=== PATIENT | male | born 1990 | race African-American/Black ===

== ENCOUNTER 2019-11-28 03:03 | Emergency (ER) | payer MEDICAID, OTHER ==
[~2019-11-28] VITALS: Ht 177.8 cm; Wt 72.6 kg
[2019-11-28] MEDS ORDERED: HYDR-3326 PO (03:17)
--- NOTE | 2019-11-28 03:25 | NUR ---
Dr Sheehan at bedside for MSE.
[2019-11-28] MEDS ORDERED: CEFTRIAXONE 1 G in IV DEXTROSE 5% 50 ML IV ONE (03:45)
[2019-11-28] MEDS ORDERED: HYDROMORPHONE 1 MG/1 ML DISP.SYRIN IV ONE (03:45)
[2019-11-28] MEDS ORDERED: ONDANSETRON 4 MG/2 ML VIAL IV ONE (03:45)
[2019-11-28] MEDS ORDERED: VANCOMYCIN IV 1,000 MG in IV DEXTROSE 5% 250 ML IV ONE (03:45)
[2019-11-28] MEDS ORDERED: VANCOMYCIN IV 200 ML ONE (03:51)
[2019-11-28] MEDS ORDERED: HYDROMORPHONE 1 MG/1 ML DISP.SYRIN ONE (03:51)
[2019-11-28] MEDS ORDERED: ONDANSETRON 4 MG/2 ML VIAL ONE (03:51)
[2019-11-28] MEDS ORDERED: CEFTRIAXONE /D5W 50ML IVPB **ER PYXIS IV ONE (03:51)
[2019-11-28] MEDS ORDERED: CEphaleXIN 500 MG CAPSULE PO ONE (04:15)
[2019-11-28] MEDS ORDERED: SULFAMETH/TRIMETH 800/160 MG TABLET PO ONE (04:15)
[2019-11-28] MEDS ORDERED: CEphaleXIN 500 MG CAPSULE ONE (04:15)
[2019-11-28] MEDS ORDERED: SULFAMETH/TRIMETH 800/160 MG TABLET ONE (04:16)
--- NOTE | 2019-11-28 04:17 | NUR ---
Patient refused all treatments in the middle of IV insertion. Dr Sheehan went at bedside to explain risks and benefits of going against medical advice. However, patient continues to state that he cannot continue with the IV insertion. Wasted Rocephin and Vancomycin bag prepared prior administration. Zofran 4mg and Dilaudid 1mg still intact and returned at the pharmacy bin. Unable to click return in the Pyxis for Dilaudid 1mg. Pt agreed to PO antibiotics, and was given discharge teaching still, to hand picker pain medications and PO antibiotics at home. Patient states he will come back later, when "my veins start to show". Before leaving, patient given information related to possible complications, up to and including , which could occur as a result of leaving the hospital at this time. Patient verbalizes understanding of risks involved due to leaving against medical advice. Patient has signed AMA form. Ambulated out of ER in steady gait.
[2019-11-28 04:21] VITALS: BP 120/80
== END 2019-11-28 04:24 | disposition left against medical advice (07) ==
LOC: ER 03:04
DX: L03.012 Cellulitis of left finger (principal); Z88.8 Allergy status to other drugs, medicaments and biological substances
CPT/HCPCS: A4663; J0696; J1170; J2405; J3370; J7030

== ENCOUNTER 2019-12-04 02:58 | Emergency (ER) | payer MEDICAID ==
[~2019-12-04] VITALS: Ht 177.8 cm; Wt 72.6 kg
[~2019-12-04 02:58] MED LIST: HYDR-3326 PO
[2019-12-04] MEDS ORDERED: [UNRECOGNIZED DRUG - REMARK] (03:06)
--- NOTE | 2019-12-04 03:20 | NUR ---
Patient walked into ER c/o left thumb swelling, redness and pain that started 8 days ago. Patient states swelling started after "working on my car."
[2019-12-04] MEDS ORDERED: HYDROMORPHONE 1 MG/1 ML DISP.SYRIN IV ONE (03:30)
[2019-12-04] MEDS ORDERED: CEFTRIAXONE 1 G in IV DEXTROSE 5% 50 ML IV ONE (03:30)
[2019-12-04] MEDS ORDERED: METRONIDAZOLE 500 MG/NS 100 ML PIGGYBACK IV ONE (03:30)
[2019-12-04] MEDS ORDERED: VANCOMYCIN IV 1,000 MG in IV DEXTROSE 5% 250 ML IV ONE (03:30)
[2019-12-04] MEDS ORDERED: ONDANSETRON 4 MG/2 ML VIAL IV ONE (03:30)
--- NOTE | 2019-12-04 03:50 | NUR ---
Patient unable to decided to have IV started. Stating "I want to leave and go to [place] instead."
--- NOTE | 2019-12-04 04:12 | NUR ---
Patient does not wish to proceed with medical care recommended by Dr. Katherine Sheehan ). Patient given information related to possible complications, up to and including , which could occur as a result of leaving the hospital at this time. Patient verbalizes understanding of risks involved due to leaving against medical advice. Patient has signed AMA form.
== END 2019-12-04 04:22 | disposition left against medical advice (07) ==
LOC: ER 03:04
DX: L02.512 Cutaneous abscess of left hand (principal); L03.114 Cellulitis of left upper limb; Z88.8 Allergy status to other drugs, medicaments and biological substances; Z91.19 Patient's noncompliance with other medical treatment and regimen
CPT/HCPCS: 73130; A4663

== ENCOUNTER 2020-07-23 22:31 | Emergency (ER) | payer MEDICAID ==
[~2020-07-23] VITALS: Ht 177.8 cm; Wt 72.6 kg
[~2020-07-23 22:31] MED LIST changes: +[UNRECOGNIZED DRUG - REMARK]
[2020-07-23] MEDS ORDERED: HYDR-3980 PO (22:58)
--- NOTE | 2020-07-23 23:27 | NUR ---
Patient discharged to home in stable condition. Written and verbal after care instructions given. Patient verbalizes understanding of instructions. Stressed follow up or return to ER for worsening s/s. Patient ambulating with steady gait. NAD noted
[2020-07-23 23:28] VITALS: BP 126/71
[2020-07-24] MEDS ORDERED: HYDR120S7 PO (00:41)
== END 2020-07-23 23:42 | disposition home or self-care (01) ==
LOC: ER 22:35
DX: S62.390A Other fracture of second metacarpal bone, right hand, initial encounter for closed fracture (principal); Y04.2XXA Assault by strike against or bumped into by another person, initial encounter; Y93.89 Activity, other specified; Y92.89 Other specified places as the place of occurrence of the external cause; Z91.048 Other nonmedicinal substance allergy status
CPT/HCPCS: 73130; A4663

== ENCOUNTER 2020-07-26 04:43 | Emergency (ER) | payer MEDICAID ==
[~2020-07-26] VITALS: Ht 177.8 cm; Wt 72.6 kg
[~2020-07-26 04:43] MED LIST changes: -HYDR-3326 PO; +HYDR120S7 PO
--- NOTE | 2020-07-26 05:10 | NUR ---
MD Hernandez in room to do MSE.
[2020-07-26 05:25] VITALS: BP 132/62
--- NOTE | 2020-07-26 05:25 | NUR ---
Patient discharged to home in stable condition. Written and verbal after care instructions given. Patient verbalizes understanding of instructions. Stressed follow up or return to ER for worsening s/s. Patient ambulates with steady gait, V/S stable, received paper Rx, left with all personal belongings.
== END 2020-07-26 05:25 | disposition home or self-care (01) ==
LOC: ER 04:46
DX: Z76.0 Encounter for issue of repeat prescription (principal)
CPT/HCPCS: A4663

== ENCOUNTER 2023-03-01 21:58 | Emergency (ER) | payer MEDICAID, OTHER ==
[~2023-03-01] VITALS: Ht 177.8 cm; Wt 71.7 kg
[2023-03-01] MEDS ORDERED: OLANZAPINE 5 MG TABLET PO ONE (23:45)
[2023-03-01 23:59] LABS: BASOPHILS # (AUTO) 0.1 K/UL (0.0-0.2); BASOPHILS % (AUTO) 1.1 % (0.0-2.0); EOSINOPHILS % (AUTO) 0.4 % (0.0-7.0); HEMATOCRIT 40.6 % (36.7-47.1); HEMOGLOBIN 13.6 g/dL (12.5-16.3); LYMPHOCYTES # (AUTO) 1.7 K/uL (0.8-4.8); LYMPHOCYTES % (AUTO) 19.7 % (20.5-51.5); MEAN CORPUSCULAR HEMOGLOBIN 30.2 uug (23.8-33.4); MEAN CORPUSCULAR HGB CONC 33 g/dL (32.5-36.3); MEAN CORPUSCULAR VOLUME 90.4 fL (73.0-96.2); MONOCYTES # (AUTO) 0.8 K/uL (0.1-1.30); MONOCYTES % (AUTO) 9.6 % (0.0-11.0); NEUTROPHILS % (AUTO) 69.2 % (38.5-71.5); PLATELET COUNT (AUTO) 410 K/uL (152-348); WHITE BLOOD COUNT (AUTO) 8.7 K/uL (3.6-10.2)
[2023-03-02] LABS: CALCIUM 9.4 mg/dL (8.5-10.1); CARBON DIOXIDE 29 mmol/L (21-32); CHLORIDE 102 mmol/L (98-107); GLUCOSE 84 mg/dL (74-106); POTASSIUM 3.7 mmol/L (3.5-5.1); SODIUM SERUM 140 mmol/L (136-145); UREA NITROGEN, BLOOD 15 mg/dL (7-18)
[2023-03-02] MEDS ORDERED: OLANZAPINE 5 MG TABLET ONE
[2023-03-02 00:03] LABS: DIFFERENTIAL COMMENT 1
[2023-03-02 00:05] LABS: ALANINE AMINOTRANSFERASE 28 U/L (16-63); ALBUMIN 3.8 g/dL (3.4-5.0); ALKALINE PHOSPHATASE 75 U/L (50-136); ASPARTATE AMINOTRANSFERASE 35 U/L (15-37); BILIRUBIN,DIRECT 0.2 mg/dL (0.0-0.2); BILIRUBIN,TOTAL 0.5 mg/dL (0.2-1.0); TOTAL PROTEIN, SERUM 7.2 g/dL (6.4-8.2)
[2023-03-02 00:13] LABS: ACETAMINOPHEN < 10.0 ug/mL (10-30)
[2023-03-02 00:21] LABS: ETHANOL < 3 MG/DL (0-10)
[2023-03-02 00:32] LABS: *BILIRUBIN,URIN NEGATIVE (NEGATIVE); *BLOOD, URINE NEGATIVE (NEGATIVE); *CLARITY,URINE CLEAR (CLEAR); *COLOR,URINE YELLOW (YELLOW); *KETONES,URINE NEGATIVE (NEGATIVE); *PROTEIN,URINE 2+ (NEGATIVE); *UROBILINOGEN,URINE 0.2 E.U./dl (NORMAL); LEUKOCYTE ESTERASE ,URINE TRACE (NEGATIVE); NITRITE, URINE NEGATIVE (NEGATIVE); UGLUCOSE NEGATIVE (NEGATIVE)
[2023-03-02 00:45] LABS: *AMPHETAMINE, URINE POSITIVE (NEGATIVE); *BARBITURATE, URINE NEGATIVE (NEGATIVE); *BENZODIAZEPINE, URINE NEGATIVE (NEGATIVE); *CANNABINOID, URINE POSITIVE (NEGATIVE); *COCCAINE, URINE NEGATIVE (NEGATIVE); *OPIATE, URINE NEGATIVE (NEGATIVE); *PHENCYCLIDINE SCREEN,URINE POSITIVE (NEGATIVE)
[2023-03-02 00:49] LABS: FENTANYL, URINE POSITIVE (NEGATIVE)
[2023-03-02 01:23] LABS: BACTERIA,URINE MODERATE /HPF (NONE SEEN); MUCUS,URINE MODERATE /LPF (0-FEW); SQUAMOUS EPITHELIAL CELL,UR MODERATE /HPF (NONE SEEN)
[2023-03-02 09:14] VITALS: O2SAT 98
== END 2023-03-02 09:51 ==
LOC: ER 21:58
DX: F29 Unspecified psychosis not due to a substance or known physiological condition (principal); Z88.8 Allergy status to other drugs, medicaments and biological substances; Z79.899 Other long term (current) drug therapy
CPT/HCPCS: 36415; 85025; A4606; A4663; G0480

== ENCOUNTER 2023-04-15 10:30 | Inpatient (IN) | payer OTHER ==
[~2023-04-15] VITALS: Ht 177.8 cm; Wt 70.3 kg
[2023-04-15] MEDS ORDERED: PROTONIX PO (10:50)
[2023-04-15] MEDS ORDERED: ZYPREXA (10:50)
[2023-04-15] MEDS ORDERED: QUET25TA3 (10:50)
[2023-04-15 11:56] LABS: BASOPHILS # (AUTO) 0.1 K/UL (0.0-0.2); BASOPHILS % (AUTO) 1.1 % (0.0-2.0); EOSINOPHILS # (AUTO) 0.3 K/uL (0.0-0.7); EOSINOPHILS % (AUTO) 2.7 % (0.0-7.0); HEMATOCRIT 35.6 % (36.7-47.1); HEMOGLOBIN 11.7 g/dL (12.5-16.3); LYMPHOCYTES # (AUTO) 1.4 K/uL (0.8-4.8); LYMPHOCYTES % (AUTO) 14.1 % (20.5-51.5); MEAN CORPUSCULAR HEMOGLOBIN 29.6 uug (23.8-33.4); MEAN CORPUSCULAR HGB CONC 33 g/dL (32.5-36.3); MEAN CORPUSCULAR VOLUME 90.2 fL (73.0-96.2); MONOCYTES # (AUTO) 0.5 K/uL (0.1-1.30); MONOCYTES % (AUTO) 5.5 % (0.0-11.0); NEUTROPHILS # (AUTO) 7.4 K/uL (1.8-8.9); NEUTROPHILS % (AUTO) 76.6 % (38.5-71.5); PLATELET COUNT (AUTO) 295 K/uL (152-348); RED BLOOD CELL COUNT(AUTO) 3.94 MIL/uL (4.06-5.63); RED CELL DISTRIBUTION WIDTH 13.8 % (12.1-16.2); WHITE BLOOD COUNT (AUTO) 9.7 K/uL (3.6-10.2)
[2023-04-15 12:07] LABS: CALCIUM 8.7 mg/dL (8.5-10.1); CARBON DIOXIDE 28 mmol/L (21-32); CHLORIDE 102 mmol/L (98-107); CREATININE 0.9 mg/dL (0.6-1.3); GLUCOSE 95 mg/dL (74-106); SODIUM SERUM 139 mmol/L (136-145); UREA NITROGEN, BLOOD 13 mg/dL (7-18)
[2023-04-15 12:16] LABS: ALANINE AMINOTRANSFERASE 63 U/L (16-63); ALBUMIN 2.9 g/dL (3.4-5.0); ALKALINE PHOSPHATASE 86 U/L (50-136); ASPARTATE AMINOTRANSFERASE 104 U/L (15-37); BILIRUBIN,DIRECT 0.1 mg/dL (0.0-0.2); BILIRUBIN,TOTAL 0.2 mg/dL (0.2-1.0); TOTAL PROTEIN, SERUM 7.5 g/dL (6.4-8.2)
[2023-04-15 12:22] LABS: DIFFERENTIAL COMMENT 1
[2023-04-15] MEDS ORDERED: PIPERACILLIN SODIUM/TAZOBACTAM 3.375 G in IV DEXTROSE 5% 50 ML IV ONE (12:30)
[2023-04-15] MEDS ORDERED: IV NORMAL SALINE 1000 ML BAG IV ONE (12:30)
[2023-04-15] MEDS ORDERED: VANCOMYCIN IV 1,000 MG in IV DEXTROSE 5% 250 ML IV ONE (12:30)
[2023-04-15] MEDS ORDERED: VANCOMYCIN IV 200 ML ONE (12:33)
[2023-04-15] MEDS ORDERED: PIPERACILLIN/TAZOBACTAM/D5W 50 ML IV ONE (12:33)
[2023-04-15] MEDS ORDERED: ACETAMINOPHEN 325 MG TABLET PO PRN (14:00)
[2023-04-15] MEDS ORDERED: ASPIRIN 325 MG TABLET PO SCH (14:00)
[2023-04-15] MEDS ORDERED: ONDANSETRON 4 MG/2 ML VIAL IV PRN (14:00)
[2023-04-15] MEDS ORDERED: MAGNESIUM HYDROXIDE 30 ML LIQUID UDC PO PRN (14:00)
[2023-04-15] MEDS ORDERED: HYDROCODONE/APAP 10-325 MG TABLET PO PRN (14:00)
[2023-04-15] MEDS ORDERED: REMEDY ESSENTIAL ZINC PASTE 113 GM TP PRN (14:00)
[2023-04-15 16:03] LABS: *BILIRUBIN,URIN NEGATIVE (NEGATIVE); *BLOOD, URINE NEGATIVE (NEGATIVE); *CLARITY,URINE CLEAR (CLEAR); *COLOR,URINE YELLOW (YELLOW); *KETONES,URINE NEGATIVE (NEGATIVE); *PROTEIN,URINE NEGATIVE (NEGATIVE); LEUKOCYTE ESTERASE ,URINE NEGATIVE (NEGATIVE); NITRITE, URINE NEGATIVE (NEGATIVE); UGLUCOSE NEGATIVE (NEGATIVE)
[2023-04-15 17:08] LABS: BACTERIA,URINE NONE SEEN /HPF (NONE SEEN); RBC,URINE NONE SEEN /HPF (0-3); SQUAMOUS EPITHELIAL CELL,UR FEW /HPF (NONE SEEN); WBC,URINE NONE SEEN /HPF (0-3)
[2023-04-15 18:36] VITALS: BP 98/57; TEMP 98.6; O2SAT 100
[2023-04-15 19:50] VITALS: BP 94/38; TEMP 98.4; O2SAT 97
[2023-04-15 20:41] LABS: *AMPHETAMINE, URINE NEGATIVE (NEGATIVE); *BARBITURATE, URINE NEGATIVE (NEGATIVE); *BENZODIAZEPINE, URINE NEGATIVE (NEGATIVE); *CANNABINOID, URINE POSITIVE (NEGATIVE); *COCCAINE, URINE NEGATIVE (NEGATIVE); *OPIATE, URINE NEGATIVE (NEGATIVE); *PHENCYCLIDINE SCREEN,URINE NEGATIVE (NEGATIVE); FENTANYL, URINE NEGATIVE (NEGATIVE)
[2023-04-15] MEDS: ENOXAPARIN SODIUM 40 MG/0.4 ML DISP.SYRIN SQ SCH (21:00)
[2023-04-15] MEDS: VANCOMYCIN IV 1,000 MG in IV DEXTROSE 5% 250 ML IV SCH (21:17)
[2023-04-16 00:05] VITALS: BP 92/49; TEMP 98.5; O2SAT 98
[2023-04-16 04:00] VITALS: BP 93/54; TEMP 98.5; O2SAT 95
[2023-04-16] MEDS: VANCOMYCIN IV 1,000 MG in IV DEXTROSE 5% 250 ML IV SCH (05:45)
[2023-04-16] MEDS ORDERED: DIVA500T4 PO (07:57)
[2023-04-16] MEDS ORDERED: DIVALPROEX 125 MG TABLET.DR PO SCH (09:00)
[2023-04-16] MEDS: DIVALPROEX ER 500 MG TAB.SR.24H PO SCH (09:12)
[2023-04-16] MEDS: QUETIAPINE FUMARATE 100 MG TABLET PO SCH ×2 (09:13→21:04)
[2023-04-16 09:14] VITALS: BP 90/57; O2SAT 96
[2023-04-16 12:05] VITALS: BP 94/54; TEMP 98.1; O2SAT 97
[2023-04-16] MEDS ORDERED: CLINDAMYCIN PHOSPHATE IV 900 MG in IV DEXTROSE 5% 50 ML IV SCH (16:00)
[2023-04-16 16:08] VITALS: BP 103/47; TEMP 98.5; O2SAT 97
[2023-04-16] MEDS: CLINDAMYCIN PHOSPHATE IV 900 MG in IV DEXTROSE 5% 50 ML IV SCH (17:56)
[2023-04-16 20:01] VITALS: BP 101/56; TEMP 97.9; O2SAT 97
[2023-04-16] MEDS: ENOXAPARIN SODIUM 40 MG/0.4 ML DISP.SYRIN SQ SCH (21:00)
[2023-04-17 00:02] VITALS: BP 91/55; TEMP 97.3; O2SAT 100
[2023-04-17] MEDS: CLINDAMYCIN PHOSPHATE IV 900 MG in IV DEXTROSE 5% 50 ML IV SCH ×2 (00:35→08:39)
[2023-04-17 04:05] VITALS: BP 104/54; TEMP 97.8; O2SAT 97
[2023-04-17 08:00] VITALS: BP 102/55; TEMP 98.8; O2SAT 95
[2023-04-17] MEDS: DIVALPROEX ER 500 MG TAB.SR.24H PO SCH (08:27)
[2023-04-17] MEDS: QUETIAPINE FUMARATE 100 MG TABLET PO SCH ×2 (08:27→20:21)
[2023-04-17] MEDS: ASPIRIN 81 MG TAB.CHEW PO SCH (08:27)
[2023-04-17 09:36] LABS: BASOPHILS # (AUTO) 0.1 K/UL (0.0-0.2); BASOPHILS % (AUTO) 1.2 % (0.0-2.0); EOSINOPHILS # (AUTO) 0.4 K/uL (0.0-0.7); EOSINOPHILS % (AUTO) 5.6 % (0.0-7.0); HEMATOCRIT 34.4 % (36.7-47.1); HEMOGLOBIN 11.2 g/dL (12.5-16.3); LYMPHOCYTES # (AUTO) 1.4 K/uL (0.8-4.8); LYMPHOCYTES % (AUTO) 20.9 % (20.5-51.5); MEAN CORPUSCULAR HEMOGLOBIN 29.1 uug (23.8-33.4); MEAN CORPUSCULAR HGB CONC 32 g/dL (32.5-36.3); MEAN CORPUSCULAR VOLUME 89.6 fL (73.0-96.2); MONOCYTES # (AUTO) 0.7 K/uL (0.1-1.30); MONOCYTES % (AUTO) 10.2 % (0.0-11.0); NEUTROPHILS % (AUTO) 62.1 % (38.5-71.5); PLATELET COUNT (AUTO) 346 K/uL (152-348); RED BLOOD CELL COUNT(AUTO) 3.84 MIL/uL (4.06-5.63); RED CELL DISTRIBUTION WIDTH 13.9 % (12.1-16.2); WHITE BLOOD COUNT (AUTO) 6.5 K/uL (3.6-10.2)
[2023-04-17 09:38] LABS: DIFFERENTIAL COMMENT 1
[2023-04-17 09:56] LABS: ALBUMIN 2.2 g/dL (3.4-5.0); BILIRUBIN,TOTAL 0.2 mg/dL (0.2-1.0); CALCIUM 8.6 mg/dL (8.5-10.1); CREATININE 0.9 mg/dL (0.6-1.3); POTASSIUM 4.2 mmol/L (3.5-5.1); TOTAL PROTEIN, SERUM 6.4 g/dL (6.4-8.2)
[2023-04-17 10:31] LABS: PHOSPHOROUS 4.3 mg/dL (2.5-4.9)
[2023-04-17 10:40] LABS: THYROID STIMULATING HORMONE 0.897 mIU/mL (0.358-3.740)
[2023-04-17 11:30] VITALS: BP 90/37; TEMP 99.2; O2SAT 95
[2023-04-17 16:00] VITALS: BP 90/48; TEMP 97.9; O2SAT 94
[2023-04-17] MEDS: NORMAL SALINE IV SCH ×2 (16:56→23:45)
[2023-04-17] MEDS: CLINDAMYCIN PHOSPHATE IV SCH ×2 (16:56→23:45)
[2023-04-17] MEDS: MUPIROCIN 2% OINT 22 GM TUBE TP SCH (16:56)
[2023-04-17 20:00] VITALS: BP 91/55; TEMP 97.5; O2SAT 96
[2023-04-17] MEDS: ENOXAPARIN SODIUM 40 MG/0.4 ML DISP.SYRIN SQ SCH (20:24)
[2023-04-18 04:00] VITALS: BP 93/54; TEMP 98.3; O2SAT 98
[2023-04-18 08:08] VITALS: BP 92/52; TEMP 98.4; O2SAT 97
[2023-04-18] MEDS: CLINDAMYCIN PHOSPHATE IV SCH ×2 (08:52→17:00)
[2023-04-18] MEDS: NORMAL SALINE IV SCH ×2 (08:52→17:00)
[2023-04-18] MEDS: ASPIRIN 81 MG TAB.CHEW PO SCH (09:05)
[2023-04-18] MEDS: QUETIAPINE FUMARATE 100 MG TABLET PO SCH (09:05)
[2023-04-18] MEDS: DIVALPROEX ER 500 MG TAB.SR.24H PO SCH (09:52)
[2023-04-18] MEDS ORDERED: ACIDOPHILUS/BULGARICUS CHEW TAB PO SCH (13:15)
[2023-04-18] MEDS ORDERED: ACID1TAB4 PO (13:21)
[2023-04-18] MEDS ORDERED: CLIN300C12 PO (13:21)
[2023-04-18] MEDS ORDERED: ASPI81TA31 PO (13:21)
[2023-04-18 16:00] VITALS: BP 95/48; TEMP 98; O2SAT 98
[2023-04-18] MEDS: MUPIROCIN 2% OINT 22 GM TUBE TP SCH (17:00)
[2023-04-18 20:00] VITALS: BP 105/55; TEMP 97.7; O2SAT 97
== END 2023-04-18 23:30 | disposition home or self-care (01) | DRG 720 ==
LOC: ER 10:30 → TELE3 17:53 → MEDSURG3 04-17 10:38 → MED 04-18 06:26
PROVIDERS: ADMIT Internal Medicine; ATTEND Internal Medicine
PROC: 0H9MXZZ Drainage of Right Foot Skin, External Approach (ICD-10-PCS; principal; 2023-04-16)
DX: A41.9 Sepsis, unspecified organism (principal); I21.A1 Myocardial infarction type 2; E43 Unspecified severe protein-calorie malnutrition; M62.82 Rhabdomyolysis; E88.09 Other disorders of plasma-protein metabolism, not elsewhere classified; S81.802A Unspecified open wound, left lower leg, initial encounter; L03.116 Cellulitis of left lower limb; E44.0 Moderate protein-calorie malnutrition; F31.9 Bipolar disorder, unspecified; F20.9 Schizophrenia, unspecified; S90.421A Blister (nonthermal), right great toe, initial encounter; X58.XXXA Exposure to other specified factors, initial encounter; Y93.9 Activity, unspecified; F15.11 Other stimulant abuse, in remission; F11.11 Opioid abuse, in remission; D64.9 Anemia, unspecified; S80.862A Insect bite (nonvenomous), left lower leg, initial encounter; W57.XXXA Bitten or stung by nonvenomous insect and other nonvenomous arthropods, initial encounter; Y92.039 Unspecified place in apartment as the place of occurrence of the external cause; Z91.199 Patient's noncompliance with other medical treatment and regimen due to unspecified reason
CPT/HCPCS: 36415; 71045; 73590; 73620; 83605; 83735; 84100; 84443; 84484; 85025; 85730; 87040; 93005; 93307; A4606; A4663; G0378; J1650; J2543; J3370; J3490; J7040; J7050

== ENCOUNTER 2023-04-23 02:50 | Emergency (ER) | payer OTHER ==
[~2023-04-23] VITALS: Ht 177.8 cm; Wt 70.3 kg
[~2023-04-23 02:50] MED LIST changes: +ACID1TAB4 PO; +ASPI81TA31 PO; +CLIN300C12 PO; +DIVA500T4 PO; -HYDR120S7 PO; +PROTONIX PO; +QUET25TA3; +ZYPREXA; -[UNRECOGNIZED DRUG - REMARK]
[2023-04-23] MEDS ORDERED: IV NORMAL SALINE 1000 ML BAG IV ONE (03:30)
[2023-04-23] MEDS ORDERED: VANCOMYCIN IV 1,000 MG in IV DEXTROSE 5% 250 ML IV ONE (03:30)
[2023-04-23] MEDS ORDERED: VANCOMYCIN IV 200 ML ONE (03:31)
[2023-04-23 03:58] LABS: BASOPHILS # (AUTO) 0.1 K/UL (0.0-0.2); EOSINOPHILS # (AUTO) 0.3 K/uL (0.0-0.7); EOSINOPHILS % (AUTO) 2.1 % (0.0-7.0); HEMATOCRIT 35.4 % (36.7-47.1); HEMOGLOBIN 11.7 g/dL (12.5-16.3); LYMPHOCYTES # (AUTO) 1.5 K/uL (0.8-4.8); LYMPHOCYTES % (AUTO) 12.6 % (20.5-51.5); MEAN CORPUSCULAR HEMOGLOBIN 29.3 uug (23.8-33.4); MEAN CORPUSCULAR HGB CONC 33 g/dL (32.5-36.3); MEAN CORPUSCULAR VOLUME 88.6 fL (73.0-96.2); MONOCYTES # (AUTO) 0.8 K/uL (0.1-1.30); MONOCYTES % (AUTO) 6.9 % (0.0-11.0); NEUTROPHILS # (AUTO) 9.5 K/uL (1.8-8.9); NEUTROPHILS % (AUTO) 77.4 % (38.5-71.5); PLATELET COUNT (AUTO) 623 K/uL (152-348); RED CELL DISTRIBUTION WIDTH 14.3 % (12.1-16.2); WHITE BLOOD COUNT (AUTO) 12.2 K/uL (3.6-10.2)
[2023-04-23 04:05] LABS: DIFFERENTIAL COMMENT 1
[2023-04-23 04:10] LABS: CARBON DIOXIDE 30 mmol/L (21-32); CHLORIDE 105 mmol/L (98-107); GLUCOSE 77 mg/dL (74-106); POTASSIUM 5.1 mmol/L (3.5-5.1); SODIUM SERUM 144 mmol/L (136-145); UREA NITROGEN, BLOOD 24 mg/dL (7-18)
[2023-04-23 04:20] LABS: ALANINE AMINOTRANSFERASE 62 U/L (16-63); ALBUMIN 3.3 g/dL (3.4-5.0); ALKALINE PHOSPHATASE 71 U/L (50-136); ASPARTATE AMINOTRANSFERASE 49 U/L (15-37); BILIRUBIN,TOTAL 0.4 mg/dL (0.2-1.0); NT-PRO BNP 79 pg/mL (0-125); TOTAL PROTEIN, SERUM 8.3 g/dL (6.4-8.2)
[2023-04-23 04:29] LABS: BILIRUBIN,DIRECT < 0.1 mg/dL (0.0-0.2)
[2023-04-23 06:14] LABS: *BILIRUBIN,URIN NEGATIVE (NEGATIVE); *BLOOD, URINE NEGATIVE (NEGATIVE); *CLARITY,URINE CLEAR (CLEAR); *COLOR,URINE YELLOW (YELLOW); *KETONES,URINE NEGATIVE (NEGATIVE); *PROTEIN,URINE NEGATIVE (NEGATIVE); *UROBILINOGEN,URINE 0.2 E.U./dl (NORMAL); LEUKOCYTE ESTERASE ,URINE NEGATIVE (NEGATIVE); NITRITE, URINE NEGATIVE (NEGATIVE); UGLUCOSE NEGATIVE (NEGATIVE)
[2023-04-23 06:25] LABS: *AMPHETAMINE, URINE POSITIVE (NEGATIVE); *BARBITURATE, URINE NEGATIVE (NEGATIVE); *BENZODIAZEPINE, URINE NEGATIVE (NEGATIVE); *CANNABINOID, URINE POSITIVE (NEGATIVE); *COCCAINE, URINE NEGATIVE (NEGATIVE); *OPIATE, URINE NEGATIVE (NEGATIVE); *PHENCYCLIDINE SCREEN,URINE NEGATIVE (NEGATIVE)
[2023-04-23 06:26] LABS: FENTANYL, URINE POSITIVE (NEGATIVE)
[2023-04-23 09:10] VITALS: O2SAT 100
== END 2023-04-23 09:20 | disposition short-term general hospital (02) ==
LOC: ER 02:57
DX: L03.115 Cellulitis of right lower limb (principal); F19.10 Other psychoactive substance abuse, uncomplicated; J40 Bronchitis, not specified as acute or chronic; K21.9 Gastro-esophageal reflux disease without esophagitis; F31.9 Bipolar disorder, unspecified; F20.9 Schizophrenia, unspecified; Z79.82 Long term (current) use of aspirin; Z79.899 Other long term (current) drug therapy; Z98.890 Other specified postprocedural states; Z20.822 Contact with and (suspected) exposure to COVID-19; Z88.1 Allergy status to other antibiotic agents
CPT/HCPCS: 99285; 93970; 96365; 71045; 96366; 87426; 80076; 80048; 82550; 83880; 85025; 87040 ×2; 84484; 36415; 93005; 83605; 80307; 81003; J3370; J7040 ×2; A4606; A4663

== ENCOUNTER 2023-05-03 14:35 | Emergency (ER) | payer OTHER ==
[~2023-05-03] VITALS: Ht 177.8 cm; Wt 77.1 kg
[2023-05-03 14:41] VITALS: O2SAT 97
[2023-05-03] MEDS ORDERED: OLANZAPINE ZYDIS 5 MG TAB.RAPDIS SL SCH (15:00)
[2023-05-03] MEDS ORDERED: MISCELLANEOUS MED PO ONE (15:00)
[2023-05-03] MEDS ORDERED: LORAZEPAM 0.5 MG TABLET PO ONE (15:00)
[2023-05-03] MEDS ORDERED: LORAZEPAM 1 MG TABLET ONE (15:10)
[2023-05-03] MEDS ORDERED: OLANZAPINE ZYDIS 5 MG TAB.RAPDIS SL ONE (15:15)
== END 2023-05-03 18:45 | disposition home or self-care (01) ==
LOC: ER 14:35
DX: F15.10 Other stimulant abuse, uncomplicated (principal); R20.2 Paresthesia of skin; J40 Bronchitis, not specified as acute or chronic; K21.9 Gastro-esophageal reflux disease without esophagitis; F31.9 Bipolar disorder, unspecified; F20.9 Schizophrenia, unspecified; F17.200 Nicotine dependence, unspecified, uncomplicated; Z98.890 Other specified postprocedural states; Z79.899 Other long term (current) drug therapy; Z60.2 Problems related to living alone
CPT/HCPCS: A4606; A4663

== ENCOUNTER 2023-05-14 16:31 | Emergency (ER) | payer OTHER ==
[~2023-05-14] VITALS: Ht 177.8 cm; Wt 77.1 kg
[2023-05-14 16:46] VITALS: O2SAT 97
[2023-05-14] MEDS ORDERED: MUPI15CR TP (17:14)
[2023-05-14] MEDS ORDERED: PERM60CR4 TP (17:14)
[2023-05-14] MEDS ORDERED: [UNRECOGNIZED DRUG - CODE] TP (17:17)
[2023-05-15] MEDS ORDERED: PERM60CR4 TP (15:58)
== END 2023-05-14 17:33 | disposition home or self-care (01) ==
LOC: ER 16:33
DX: F22 Delusional disorders (principal); L73.9 Follicular disorder, unspecified; R20.2 Paresthesia of skin; F19.10 Other psychoactive substance abuse, uncomplicated; J40 Bronchitis, not specified as acute or chronic; K21.9 Gastro-esophageal reflux disease without esophagitis; Z79.82 Long term (current) use of aspirin; Z98.890 Other specified postprocedural states; Z79.899 Other long term (current) drug therapy; Z59.00 Homelessness unspecified; Z88.1 Allergy status to other antibiotic agents
CPT/HCPCS: A4606; A4663

== ENCOUNTER 2023-05-15 15:39 | Emergency (ER) | payer OTHER ==
[~2023-05-15] VITALS: Ht 177.8 cm; Wt 77.1 kg
[~2023-05-15 15:39] MED LIST changes: +MUPI15CR TP; +PERM60CR4 TP; +[UNRECOGNIZED DRUG - CODE] TP
[2023-05-15 15:42] VITALS: O2SAT 98
[2023-05-15] MEDS ORDERED: PERM60CR4 TP (15:58)
== END 2023-05-15 16:21 | disposition home or self-care (01) ==
LOC: ER 15:47
DX: F45.8 Other somatoform disorders (principal); F15.10 Other stimulant abuse, uncomplicated; J40 Bronchitis, not specified as acute or chronic; K21.9 Gastro-esophageal reflux disease without esophagitis; F31.9 Bipolar disorder, unspecified; F20.9 Schizophrenia, unspecified; F17.200 Nicotine dependence, unspecified, uncomplicated; Z79.82 Long term (current) use of aspirin; Z98.890 Other specified postprocedural states; Z79.899 Other long term (current) drug therapy; Z88.2 Allergy status to sulfonamides
CPT/HCPCS: A4606; A4663

== ENCOUNTER 2023-07-23 22:16 | Emergency (ER) | payer OTHER ==
[~2023-07-23] VITALS: Ht 177.8 cm; Wt 79.4 kg
[~2023-07-23 22:16] MED LIST changes: +CEPH500C2 PO; +IBUP-1953 PO
[2023-07-24 00:15] LABS: BASOPHILS # (AUTO) 0.1 K/UL (0.0-0.2); EOSINOPHILS # (AUTO) 0.1 K/uL (0.0-0.7); EOSINOPHILS % (AUTO) 1.9 % (0.0-7.0); HEMOGLOBIN 13.9 g/dL (12.5-16.3); LYMPHOCYTES # (AUTO) 1.9 K/uL (0.8-4.8); LYMPHOCYTES % (AUTO) 26.3 % (20.5-51.5); MEAN CORPUSCULAR HGB CONC 33 g/dL (32.5-36.3); MEAN CORPUSCULAR VOLUME 87.4 fL (73.0-96.2); MONOCYTES # (AUTO) 0.6 K/uL (0.1-1.30); NEUTROPHILS # (AUTO) 4.6 K/uL (1.8-8.9); NEUTROPHILS % (AUTO) 62.8 % (38.5-71.5); PLATELET COUNT (AUTO) 362 K/uL (152-348); RED CELL DISTRIBUTION WIDTH 14.6 % (12.1-16.2); WHITE BLOOD COUNT (AUTO) 7.4 K/uL (3.6-10.2)
[2023-07-24 00:23] LABS: DIFFERENTIAL COMMENT 1
[2023-07-24 00:24] LABS: CREATININE 0.9 mg/dL (0.6-1.3); POTASSIUM 4.1 mmol/L (3.5-5.1)
[2023-07-24 00:30] LABS: *AMPHETAMINE, URINE POSITIVE (NEGATIVE); *BARBITURATE, URINE NEGATIVE (NEGATIVE); *BENZODIAZEPINE, URINE NEGATIVE (NEGATIVE); *CANNABINOID, URINE POSITIVE (NEGATIVE); *COCCAINE, URINE NEGATIVE (NEGATIVE); *OPIATE, URINE POSITIVE (NEGATIVE); *PHENCYCLIDINE SCREEN,URINE POSITIVE (NEGATIVE)
[2023-07-24 00:30] LABS: ALBUMIN 3.8 g/dL (3.4-5.0); BILIRUBIN,TOTAL 0.4 mg/dL (0.2-1.0); MAGNESIUM 2.3 mg/dL (1.8-2.4)
[2023-07-24 00:31] LABS: FENTANYL, URINE POSITIVE (NEGATIVE)
[2023-07-24] MEDS ORDERED: HALOPERIDOL 0.5 MG TABLET ONE (01:00)
[2023-07-24] MEDS: HALOPERIDOL 0.5 MG TABLET PO ONE (01:08)
[2023-07-24 01:14] VITALS: BP 116/78; TEMP 98.5; O2SAT 100
== END 2023-07-24 01:14 | disposition home or self-care (01) ==
LOC: ER 22:18
DX: R20.2 Paresthesia of skin (principal); F19.10 Other psychoactive substance abuse, uncomplicated; E16.2 Hypoglycemia, unspecified; J45.909 Unspecified asthma, uncomplicated; K21.9 Gastro-esophageal reflux disease without esophagitis; F31.9 Bipolar disorder, unspecified; F17.200 Nicotine dependence, unspecified, uncomplicated; Z98.890 Other specified postprocedural states; Z79.899 Other long term (current) drug therapy; Z59.00 Homelessness unspecified; Z88.1 Allergy status to other antibiotic agents
CPT/HCPCS: 36415; 83735; 85025; A4606; A4663

== ENCOUNTER 2023-08-10 01:03 | Emergency (ER) | payer OTHER ==
[~2023-08-10] VITALS: Ht 177.8 cm; Wt 74.8 kg
[2023-08-10] MEDS ORDERED: LIDOCAINE HCL 1% 20 ML VIAL ONE (01:31)
[2023-08-10] MEDS ORDERED: CEFTRIAXONE 1 G VIAL ONE (01:31)
[2023-08-10] MEDS ORDERED: SULFAMETH/TRIMETH 800/160 MG TABLET ONE (01:31)
[2023-08-10] MEDS ORDERED: TDAP DIPH,PERTUSS,TET VAC/PF 0.5 ML DISP.SYRIN IM ONE (01:32)
[2023-08-10] MEDS: SULFAMETH/TRIMETH 800/160 MG TABLET PO ONE (01:33)
[2023-08-10] MEDS: TDAP DIPH,PERTUSS,TET VAC/PF 0.5 ML DISP.SYRIN IM ONE (01:33)
[2023-08-10] MEDS: CEFTRIAXONE 1 G VIAL IM ONE (01:33)
[2023-08-10] MEDS ORDERED: SULF1TAB48 PO (01:40)
[2023-08-10] MEDS ORDERED: PERM60CR4 TP (01:40)
[2023-08-10] MEDS ORDERED: CEPH500T PO (01:40)
[2023-08-10 01:58] VITALS: BP 145/88; O2SAT 97
== END 2023-08-10 01:50 | disposition home or self-care (01) ==
LOC: ER 01:04
DX: L02.413 Cutaneous abscess of right upper limb (principal); L03.113 Cellulitis of right upper limb; R20.2 Paresthesia of skin; F15.10 Other stimulant abuse, uncomplicated; J45.909 Unspecified asthma, uncomplicated; K21.9 Gastro-esophageal reflux disease without esophagitis; F31.9 Bipolar disorder, unspecified; F17.210 Nicotine dependence, cigarettes, uncomplicated; Z98.890 Other specified postprocedural states; Z79.899 Other long term (current) drug therapy; Z88.1 Allergy status to other antibiotic agents
CPT/HCPCS: 99284; 99406; 90715; 96372; 90471; J0696; J3490; A4606; A4663

== ENCOUNTER 2023-08-16 22:31 | Emergency (ER) | payer OTHER ==
[~2023-08-16] VITALS: Ht 177.8 cm; Wt 72.6 kg
[~2023-08-16 22:31] MED LIST changes: +CEPH500T PO; +SULF1TAB48 PO
[2023-08-16 23:25] VITALS: O2SAT 99
[2023-08-16] MEDS ORDERED: CEPH500C2 PO (23:49)
[2023-08-16] MEDS ORDERED: QUET300T2 PO (23:49)
[2023-08-16] MEDS ORDERED: DIVA500T2 PO (23:49)
[2023-08-16] MEDS ORDERED: QUET100T PO (23:49)
[2023-08-16] MEDS ORDERED: SULF1TAB48 PO (23:49)
== END 2023-08-17 | disposition home or self-care (01) ==
LOC: ER 22:32
DX: L03.113 Cellulitis of right upper limb (principal); J45.909 Unspecified asthma, uncomplicated; K21.9 Gastro-esophageal reflux disease without esophagitis; F31.9 Bipolar disorder, unspecified; F17.200 Nicotine dependence, unspecified, uncomplicated; Z98.890 Other specified postprocedural states; Z79.899 Other long term (current) drug therapy; Z88.1 Allergy status to other antibiotic agents
CPT/HCPCS: A4606; A4663

== ENCOUNTER 2023-08-27 05:48 | Emergency (ER) | payer OTHER ==
[~2023-08-27] VITALS: Ht 180.3 cm; Wt 72.6 kg
[~2023-08-27 05:48] MED LIST changes: +DIVA500T2 PO; +QUET100T PO; +QUET300T2 PO
[2023-08-27] MEDS ORDERED: HALOPERIDOL 0.5 MG TABLET ONE (06:20)
[2023-08-27] MEDS: HALOPERIDOL 0.5 MG TABLET PO ONE (06:22)
[2023-08-27 07:49] VITALS: O2SAT 97
== END 2023-08-27 07:49 | disposition home or self-care (01) ==
LOC: ER 05:50
DX: F22 Delusional disorders (principal); L84 Corns and callosities; B35.1 Tinea unguium; F19.10 Other psychoactive substance abuse, uncomplicated; J45.909 Unspecified asthma, uncomplicated; K21.9 Gastro-esophageal reflux disease without esophagitis; F31.9 Bipolar disorder, unspecified; F17.200 Nicotine dependence, unspecified, uncomplicated; Z90.49 Acquired absence of other specified parts of digestive tract; Z79.899 Other long term (current) drug therapy; Z88.1 Allergy status to other antibiotic agents
CPT/HCPCS: A4606; A4663

== ENCOUNTER 2023-11-11 06:51 | Emergency (ER) | payer OTHER ==
[~2023-11-11] VITALS: Ht 177.8 cm; Wt 77.1 kg
[~2023-11-11 06:51] MED LIST changes: +OLAN10TA3 PO
[2023-11-11 07:54] LABS: BASOPHILS # (AUTO) 0.1 K/UL (0.0-0.2); BASOPHILS % (AUTO) 2.3 % (0.0-2.0); EOSINOPHILS # (AUTO) 0.1 K/uL (0.0-0.7); EOSINOPHILS % (AUTO) 2.7 % (0.0-7.0); HEMATOCRIT 40.2 % (36.7-47.1); HEMOGLOBIN 12.9 g/dL (12.5-16.3); LYMPHOCYTES # (AUTO) 1.7 K/uL (0.8-4.8); LYMPHOCYTES % (AUTO) 29.9 % (20.5-51.5); MEAN CORPUSCULAR HEMOGLOBIN 29.3 uug (23.8-33.4); MEAN CORPUSCULAR HGB CONC 32 g/dL (32.5-36.3); MONOCYTES # (AUTO) 0.8 K/uL (0.1-1.30); MONOCYTES % (AUTO) 13.9 % (0.0-11.0); NEUTROPHILS # (AUTO) 2.8 K/uL (1.8-8.9); NEUTROPHILS % (AUTO) 51.2 % (38.5-71.5); PLATELET COUNT (AUTO) 326 K/uL (152-348); RED BLOOD CELL COUNT(AUTO) 4.42 MIL/uL (4.06-5.63); RED CELL DISTRIBUTION WIDTH 14.9 % (12.1-16.2); WHITE BLOOD COUNT (AUTO) 5.5 K/uL (3.6-10.2)
[2023-11-11 08:13] LABS: CALCIUM 8.7 mg/dL (8.5-10.1); CARBON DIOXIDE 29 mmol/L (21-32); CHLORIDE 107 mmol/L (98-107); CREATININE 0.9 mg/dL (0.6-1.3); GLUCOSE 86 mg/dL (74-106); POTASSIUM 4.4 mmol/L (3.5-5.1); SODIUM SERUM 142 mmol/L (136-145); UREA NITROGEN, BLOOD 19 mg/dL (7-18)
[2023-11-11 08:22] LABS: ALANINE AMINOTRANSFERASE 21 U/L (16-63); ALBUMIN 3.3 g/dL (3.4-5.0); ALKALINE PHOSPHATASE 56 U/L (50-136); ASPARTATE AMINOTRANSFERASE 17 U/L (15-37); BILIRUBIN,DIRECT 0.1 mg/dL (0.0-0.2); BILIRUBIN,TOTAL 0.3 mg/dL (0.2-1.0); TOTAL PROTEIN, SERUM 6.6 g/dL (6.4-8.2)
[2023-11-11 11:38] LABS: *BILIRUBIN,URIN NEGATIVE (NEGATIVE); *BLOOD, URINE NEGATIVE (NEGATIVE); *CLARITY,URINE CLEAR (CLEAR); *COLOR,URINE YELLOW (YELLOW); *KETONES,URINE NEGATIVE (NEGATIVE); *PROTEIN,URINE TRACE (NEGATIVE); *UROBILINOGEN,URINE 0.2 E.U./dl (NORMAL); LEUKOCYTE ESTERASE ,URINE NEGATIVE (NEGATIVE); NITRITE, URINE NEGATIVE (NEGATIVE); UGLUCOSE NEGATIVE (NEGATIVE)
[2023-11-11 11:57] LABS: *AMPHETAMINE, URINE POSITIVE (NEGATIVE); *BARBITURATE, URINE NEGATIVE (NEGATIVE); *BENZODIAZEPINE, URINE NEGATIVE (NEGATIVE); *CANNABINOID, URINE POSITIVE (NEGATIVE); *COCCAINE, URINE NEGATIVE (NEGATIVE); *OPIATE, URINE NEGATIVE (NEGATIVE); *PHENCYCLIDINE SCREEN,URINE NEGATIVE (NEGATIVE); FENTANYL, URINE NEGATIVE (NEGATIVE)
[2023-11-11 12:01] LABS: BACTERIA,URINE NONE SEEN /HPF (NONE SEEN); RBC,URINE NONE SEEN /HPF (0-3); SQUAMOUS EPITHELIAL CELL,UR FEW /HPF (NONE SEEN); WBC,URINE 0-3 /HPF (0-3)
[2023-11-11 14:16] VITALS: BP 131/64; O2SAT 96
== END 2023-11-11 14:17 | disposition home or self-care (01) ==
LOC: ER 06:58
DX: F22 Delusional disorders (principal); F15.10 Other stimulant abuse, uncomplicated; J45.909 Unspecified asthma, uncomplicated; K21.9 Gastro-esophageal reflux disease without esophagitis; F31.9 Bipolar disorder, unspecified; F17.200 Nicotine dependence, unspecified, uncomplicated; Z90.49 Acquired absence of other specified parts of digestive tract; Z79.1 Long term (current) use of non-steroidal anti-inflammatories (NSAID); Z79.899 Other long term (current) drug therapy; Z79.82 Long term (current) use of aspirin; Z88.1 Allergy status to other antibiotic agents
CPT/HCPCS: 36415; 84484; 85025; A4606; A4663

== ENCOUNTER 2023-11-12 02:41 | Emergency (ER) | payer OTHER ==
[~2023-11-12] VITALS: Ht 180.3 cm; Wt 72.6 kg
[2023-11-12 03:51] LABS: BASOPHILS # (AUTO) 0.1 K/UL (0.0-0.2); BASOPHILS % (AUTO) 1.1 % (0.0-2.0); EOSINOPHILS # (AUTO) 0.2 K/uL (0.0-0.7); EOSINOPHILS % (AUTO) 2.9 % (0.0-7.0); HEMATOCRIT 36.5 % (36.7-47.1); LYMPHOCYTES # (AUTO) 2.1 K/uL (0.8-4.8); LYMPHOCYTES % (AUTO) 31.8 % (20.5-51.5); MEAN CORPUSCULAR HEMOGLOBIN 29.6 uug (23.8-33.4); MEAN CORPUSCULAR HGB CONC 33 g/dL (32.5-36.3); MEAN CORPUSCULAR VOLUME 90.1 fL (73.0-96.2); MONOCYTES # (AUTO) 0.6 K/uL (0.1-1.30); MONOCYTES % (AUTO) 9.4 % (0.0-11.0); NEUTROPHILS # (AUTO) 3.6 K/uL (1.8-8.9); NEUTROPHILS % (AUTO) 54.8 % (38.5-71.5); PLATELET COUNT (AUTO) 316 K/uL (152-348); RED BLOOD CELL COUNT(AUTO) 4.05 MIL/uL (4.06-5.63); RED CELL DISTRIBUTION WIDTH 14.6 % (12.1-16.2); WHITE BLOOD COUNT (AUTO) 6.6 K/uL (3.6-10.2)
[2023-11-12 04:01] LABS: *BILIRUBIN,URIN NEGATIVE (NEGATIVE); *BLOOD, URINE NEGATIVE (NEGATIVE); *CLARITY,URINE CLEAR (CLEAR); *COLOR,URINE YELLOW (YELLOW); *KETONES,URINE NEGATIVE (NEGATIVE); *PROTEIN,URINE NEGATIVE (NEGATIVE); *UROBILINOGEN,URINE 0.2 E.U./dl (NORMAL); LEUKOCYTE ESTERASE ,URINE NEGATIVE (NEGATIVE); NITRITE, URINE NEGATIVE (NEGATIVE); UGLUCOSE NEGATIVE (NEGATIVE)
[2023-11-12 04:05] LABS: DIFFERENTIAL COMMENT 1
[2023-11-12 04:13] LABS: *AMPHETAMINE, URINE POSITIVE (NEGATIVE); *BARBITURATE, URINE NEGATIVE (NEGATIVE); *BENZODIAZEPINE, URINE NEGATIVE (NEGATIVE); *CANNABINOID, URINE POSITIVE (NEGATIVE); *COCCAINE, URINE NEGATIVE (NEGATIVE); *OPIATE, URINE NEGATIVE (NEGATIVE); *PHENCYCLIDINE SCREEN,URINE NEGATIVE (NEGATIVE); FENTANYL, URINE NEGATIVE (NEGATIVE)
[2023-11-12 04:13] LABS: ALANINE AMINOTRANSFERASE 40 U/L (16-63); ALBUMIN 3.2 g/dL (3.4-5.0); ALKALINE PHOSPHATASE 62 U/L (50-136); ASPARTATE AMINOTRANSFERASE 33 U/L (15-37); BILIRUBIN,DIRECT 0.1 mg/dL (0.0-0.2); BILIRUBIN,TOTAL 0.2 mg/dL (0.2-1.0); CALCIUM 8.7 mg/dL (8.5-10.1); CARBON DIOXIDE 28 mmol/L (21-32); CHLORIDE 105 mmol/L (98-107); CREATININE 0.9 mg/dL (0.6-1.3); GLUCOSE 110 mg/dL (74-106); POTASSIUM 3.8 mmol/L (3.5-5.1); SODIUM SERUM 141 mmol/L (136-145); TOTAL PROTEIN, SERUM 6.2 g/dL (6.4-8.2); UREA NITROGEN, BLOOD 17 mg/dL (7-18)
[2023-11-12 04:18] LABS: ETHANOL < 3 MG/DL (0-10)
[2023-11-12 04:19] LABS: ACETAMINOPHEN < 10.0 ug/mL (10-30)
[2023-11-12 10:16] VITALS: BP 101/62; O2SAT 99
== END 2023-11-12 10:17 | disposition home or self-care (01) ==
LOC: ER 02:44
DX: F31.9 Bipolar disorder, unspecified (principal); F19.10 Other psychoactive substance abuse, uncomplicated; J45.909 Unspecified asthma, uncomplicated; K21.9 Gastro-esophageal reflux disease without esophagitis; F17.200 Nicotine dependence, unspecified, uncomplicated; Z79.899 Other long term (current) drug therapy; Z79.1 Long term (current) use of non-steroidal anti-inflammatories (NSAID); Z79.82 Long term (current) use of aspirin; Z20.822 Contact with and (suspected) exposure to COVID-19; Z88.1 Allergy status to other antibiotic agents
CPT/HCPCS: 36415; 85025; 98960; A4606; A4663; G0480

== ENCOUNTER 2023-12-26 12:27 | Emergency (ER) | payer OTHER ==
[~2023-12-26] VITALS: Ht 177.8 cm; Wt 77.1 kg
[2023-12-26] MEDS ORDERED: PERM60CR4 TP (15:58)
[2023-12-26 17:16] VITALS: BP 121/74; TEMP 98.6; O2SAT 98
== END 2023-12-26 17:17 | disposition home or self-care (01) ==
LOC: ER 12:27
DX: B86 Scabies (principal); E11.9 Type 2 diabetes mellitus without complications; K21.9 Gastro-esophageal reflux disease without esophagitis; J45.909 Unspecified asthma, uncomplicated; I25.2 Old myocardial infarction; F17.210 Nicotine dependence, cigarettes, uncomplicated; Z79.82 Long term (current) use of aspirin; Z79.899 Other long term (current) drug therapy
CPT/HCPCS: A4606; A4663

== ENCOUNTER 2024-01-02 12:46 | Emergency (ER) | payer OTHER ==
[~2024-01-02] VITALS: Ht 177.8 cm; Wt 77.1 kg
[2024-01-02 12:55] VITALS: O2SAT 99
[2024-01-02] MEDS ORDERED: HALO0.5T6 PO (13:47)
[2024-01-02] MEDS ORDERED: OLAN5TAB3 PO (22:49)
== END 2024-01-02 13:53 | disposition home or self-care (01) ==
LOC: ER 12:46
DX: F22 Delusional disorders (principal); J45.909 Unspecified asthma, uncomplicated; K21.9 Gastro-esophageal reflux disease without esophagitis; F31.9 Bipolar disorder, unspecified; F17.210 Nicotine dependence, cigarettes, uncomplicated; Z79.82 Long term (current) use of aspirin; Z90.89 Acquired absence of other organs; Z79.899 Other long term (current) drug therapy; Z88.8 Allergy status to other drugs, medicaments and biological substances
CPT/HCPCS: A4606; A4663

== ENCOUNTER 2024-01-02 22:31 | Emergency (ER) | payer OTHER ==
[~2024-01-02] VITALS: Ht 177.8 cm; Wt 77.1 kg
[~2024-01-02 22:31] MED LIST changes: +HALO0.5T6 PO
[2024-01-02] MEDS ORDERED: OLAN5TAB3 PO (22:49)
[2024-01-02] MEDS ORDERED: OLANZAPINE 5 MG TABLET ONE (22:53)
[2024-01-02] MEDS: OLANZAPINE 5 MG TABLET PO ONE (22:59)
[2024-01-02 23:34] VITALS: BP 126/80; TEMP 98; O2SAT 98
== END 2024-01-02 23:35 | disposition home or self-care (01) ==
LOC: ER 22:32
DX: F22 Delusional disorders (principal); F15.10 Other stimulant abuse, uncomplicated; J45.909 Unspecified asthma, uncomplicated; K21.9 Gastro-esophageal reflux disease without esophagitis; F31.9 Bipolar disorder, unspecified; F17.210 Nicotine dependence, cigarettes, uncomplicated; Z90.89 Acquired absence of other organs; Z79.82 Long term (current) use of aspirin; Z79.899 Other long term (current) drug therapy
CPT/HCPCS: A4606; A4663

== ENCOUNTER 2024-01-05 06:41 | Emergency (ER) | payer OTHER ==
[~2024-01-05] VITALS: Ht 177.8 cm; Wt 75.7 kg
[~2024-01-05 06:41] MED LIST changes: +OLAN5TAB3 PO
[2024-01-05 06:57] VITALS: O2SAT 98
[2024-01-05] MEDS ORDERED: HYDR-501 PO (08:08)
[2024-01-05] MEDS ORDERED: IVER3TAB2 PO (08:08)
== END 2024-01-05 08:15 | disposition home or self-care (01) ==
LOC: ER 06:43
DX: L98.8 Other specified disorders of the skin and subcutaneous tissue (principal); J45.909 Unspecified asthma, uncomplicated; K21.9 Gastro-esophageal reflux disease without esophagitis; F31.9 Bipolar disorder, unspecified; F17.210 Nicotine dependence, cigarettes, uncomplicated; Z79.82 Long term (current) use of aspirin; Z90.89 Acquired absence of other organs; Z79.899 Other long term (current) drug therapy
CPT/HCPCS: A4606; A4663

== ENCOUNTER 2024-01-19 23:10 | Emergency (ER) | payer OTHER ==
[~2024-01-19] VITALS: Ht 177.8 cm; Wt 75.7 kg
[~2024-01-19 23:10] MED LIST changes: +HYDR-501 PO; +IVER3TAB2 PO
[2024-01-20] MEDS ORDERED: IBUP-1953 PO (01:05)
[2024-01-20] MEDS ORDERED: IVER3TAB2 PO (01:05)
[2024-01-20] MEDS ORDERED: IBUPROFEN 800 MG TABLET ONE (01:13)
[2024-01-20] MEDS: IBUPROFEN 800 MG TABLET PO ONE (01:15)
[2024-01-20 02:05] VITALS: BP 154/64; TEMP 98; O2SAT 100
== END 2024-01-20 01:25 | disposition home or self-care (01) ==
LOC: ER 23:20
DX: B34.9 Viral infection, unspecified (principal); J45.909 Unspecified asthma, uncomplicated; K21.9 Gastro-esophageal reflux disease without esophagitis; J00 Acute nasopharyngitis [common cold]; E11.9 Type 2 diabetes mellitus without complications; F31.9 Bipolar disorder, unspecified; F17.210 Nicotine dependence, cigarettes, uncomplicated; Z90.89 Acquired absence of other organs; Z79.82 Long term (current) use of aspirin; Z79.899 Other long term (current) drug therapy
CPT/HCPCS: A4606; A4663

== ENCOUNTER 2024-01-25 10:27 | Emergency (ER) | payer OTHER ==
[~2024-01-25] VITALS: Ht 177.8 cm; Wt 72.6 kg
[2024-01-25 10:58] VITALS: BP 131/73; O2SAT 100
== END 2024-01-25 10:58 | disposition home or self-care (01) ==
LOC: ER 10:28
DX: F22 Delusional disorders (principal); Z76.0 Encounter for issue of repeat prescription; F17.210 Nicotine dependence, cigarettes, uncomplicated; F31.9 Bipolar disorder, unspecified; F12.90 Cannabis use, unspecified, uncomplicated; E11.9 Type 2 diabetes mellitus without complications; J45.909 Unspecified asthma, uncomplicated; K21.9 Gastro-esophageal reflux disease without esophagitis; Z79.82 Long term (current) use of aspirin; Z79.899 Other long term (current) drug therapy; Z90.89 Acquired absence of other organs
CPT/HCPCS: A4606; A4663

== ENCOUNTER 2024-01-31 12:46 | Emergency (ER) | payer OTHER ==
[~2024-01-31] VITALS: Ht 177.8 cm; Wt 72.6 kg
[2024-01-31] MEDS ORDERED: IBUP-1955 PO (15:34)
[2024-01-31] MEDS ORDERED: OLAN10TA3 PO (15:34)
[2024-01-31 15:59] VITALS: BP 128/78; TEMP 98; O2SAT 98
== END 2024-01-31 15:59 | disposition home or self-care (01) ==
LOC: ER 12:46
DX: F22 Delusional disorders (principal); M25.50 Pain in unspecified joint; F31.9 Bipolar disorder, unspecified; F19.10 Other psychoactive substance abuse, uncomplicated; J45.909 Unspecified asthma, uncomplicated; K21.9 Gastro-esophageal reflux disease without esophagitis; F17.210 Nicotine dependence, cigarettes, uncomplicated; E11.9 Type 2 diabetes mellitus without complications; F12.90 Cannabis use, unspecified, uncomplicated; Z90.89 Acquired absence of other organs; Z79.82 Long term (current) use of aspirin; Z79.899 Other long term (current) drug therapy
CPT/HCPCS: A4606; A4663

== ENCOUNTER 2024-04-15 07:14 | Emergency (ER) | payer OTHER ==
[~2024-04-15] VITALS: Ht 167.6 cm; Wt 72.6 kg
[~2024-04-15 07:14] MED LIST changes: +IBUP-1955 PO; +NAPR500T6 PO
[2024-04-15] MEDS: IV NORMAL SALINE 1000 ML BAG IV ONE (08:39)
[2024-04-15 08:41] LABS: BASOPHILS # (AUTO) 0.1 K/UL (0.0-0.2); BASOPHILS % (AUTO) 0.9 % (0.0-2.0); EOSINOPHILS # (AUTO) 0.1 K/uL (0.0-0.7); EOSINOPHILS % (AUTO) 0.7 % (0.0-7.0); HEMATOCRIT 39.7 % (36.7-47.1); HEMOGLOBIN 13.3 g/dL (12.5-16.3); LYMPHOCYTES # (AUTO) 0.8 K/uL (0.8-4.8); LYMPHOCYTES % (AUTO) 8.1 % (20.5-51.5); MEAN CORPUSCULAR HEMOGLOBIN 30.3 uug (23.8-33.4); MEAN CORPUSCULAR HGB CONC 34 g/dL (32.5-36.3); MEAN CORPUSCULAR VOLUME 90.2 fL (73.0-96.2); MONOCYTES # (AUTO) 0.6 K/uL (0.1-1.30); MONOCYTES % (AUTO) 5.6 % (0.0-11.0); NEUTROPHILS # (AUTO) 8.9 K/uL (1.8-8.9); NEUTROPHILS % (AUTO) 84.7 % (38.5-71.5); PLATELET COUNT (AUTO) 385 K/uL (152-348); RED CELL DISTRIBUTION WIDTH 13.9 % (12.1-16.2); WHITE BLOOD COUNT (AUTO) 10.5 K/uL (3.6-10.2)
[2024-04-15 08:49] LABS: DIFFERENTIAL COMMENT 1
[2024-04-15 09:00] LABS: ALANINE AMINOTRANSFERASE 24 U/L (16-63); ALBUMIN 3.3 g/dL (3.4-5.0); ALKALINE PHOSPHATASE 100 U/L (50-136); ASPARTATE AMINOTRANSFERASE 19 U/L (15-37); BILIRUBIN,DIRECT 0.1 mg/dL (0.0-0.2); BILIRUBIN,TOTAL 0.2 mg/dL (0.2-1.0); CALCIUM 8.5 mg/dL (8.5-10.1); CARBON DIOXIDE 31 mmol/L (21-32); CHLORIDE 110 mmol/L (98-107); GLUCOSE 106 mg/dL (74-106); LIPASE 71 U/L (16-77); POTASSIUM 4.1 mmol/L (3.5-5.1); SODIUM SERUM 148 mmol/L (136-145); TOTAL PROTEIN, SERUM 6.7 g/dL (6.4-8.2); UREA NITROGEN, BLOOD 15 mg/dL (7-18)
[2024-04-15] MEDS ORDERED: ONDANSETRON 4 MG/2 ML VIAL ONE (11:47)
[2024-04-15] MEDS: ONDANSETRON 4 MG/2 ML VIAL IV ONE (11:48)
[2024-04-15] MEDS ORDERED: ONDA-104 PO (13:31)
[2024-04-15] MEDS ORDERED: MAG HYDROX/AL HYDROX/SIMETH 30 ML LIQUID UDC ONE (13:57)
[2024-04-15] MEDS: MAG HYDROX/AL HYDROX/SIMETH 30 ML LIQUID UDC PO ONE (14:00)
[2024-04-15 14:13] VITALS: BP 130/60; O2SAT 99
== END 2024-04-15 14:14 | disposition home or self-care (01) ==
LOC: ER 07:14
DX: S22.42XA Multiple fractures of ribs, left side, initial encounter for closed fracture (principal); R10.9 Unspecified abdominal pain; R11.2 Nausea with vomiting, unspecified; E11.9 Type 2 diabetes mellitus without complications; F12.90 Cannabis use, unspecified, uncomplicated; F17.210 Nicotine dependence, cigarettes, uncomplicated; F31.9 Bipolar disorder, unspecified; J45.909 Unspecified asthma, uncomplicated; K21.9 Gastro-esophageal reflux disease without esophagitis; Z79.82 Long term (current) use of aspirin; Z90.89 Acquired absence of other organs; Z79.899 Other long term (current) drug therapy; Z60.2 Problems related to living alone; X58.XXXA Exposure to other specified factors, initial encounter; Y93.89 Activity, other specified; Y92.89 Other specified places as the place of occurrence of the external cause; Y99.8 Other external cause status
CPT/HCPCS: 99285; 71250; 96374; 96361; 80076; 80048; 83690; 85025; 85730; 84484; 36415; 74176; J2405; J7040; A4606; A4663

== ENCOUNTER 2024-05-12 13:36 | Emergency (ER) | payer OTHER ==
[~2024-05-12] VITALS: Ht 177.8 cm; Wt 52.2 kg
[~2024-05-12 13:36] MED LIST changes: +ONDA-104 PO
[2024-05-12 14:03] VITALS: O2SAT 97
== END 2024-05-12 18:23 | disposition left against medical advice (07) ==
LOC: ER 13:36
DX: H92.09 Otalgia, unspecified ear (principal); Z53.21 Procedure and treatment not carried out due to patient leaving prior to being seen by health care provider
CPT/HCPCS: A4606; A4663

== ENCOUNTER 2024-05-22 12:13 | Emergency (ER) | payer OTHER ==
[~2024-05-22] VITALS: Ht 172.7 cm; Wt 72.6 kg
[2024-05-22] MEDS ORDERED: DIPH103G TP (12:48)
[2024-05-22 13:03] VITALS: BP 145/87; TEMP 98.7; O2SAT 97
== END 2024-05-22 13:04 | disposition home or self-care (01) ==
LOC: ER 12:18
DX: R21 Rash and other nonspecific skin eruption (principal); E11.9 Type 2 diabetes mellitus without complications; F12.90 Cannabis use, unspecified, uncomplicated; F17.210 Nicotine dependence, cigarettes, uncomplicated; J45.909 Unspecified asthma, uncomplicated; F31.9 Bipolar disorder, unspecified; K21.9 Gastro-esophageal reflux disease without esophagitis; Z59.00 Homelessness unspecified; Z79.82 Long term (current) use of aspirin; Z79.899 Other long term (current) drug therapy; Z90.89 Acquired absence of other organs; Z88.8 Allergy status to other drugs, medicaments and biological substances; Z60.2 Problems related to living alone
CPT/HCPCS: A4606; A4663

== ENCOUNTER 2024-05-24 10:01 | Emergency (ER) | payer OTHER ==
[~2024-05-24] VITALS: Ht 177.8 cm; Wt 72.6 kg
[~2024-05-24 10:01] MED LIST changes: +DIPH103G TP
[2024-05-24] MEDS ORDERED: IVER3TAB2 PO (12:12)
[2024-05-24 13:31] LABS: BASOPHILS # (AUTO) 0.1 K/UL (0.0-0.2); BASOPHILS % (AUTO) 0.9 % (0.0-2.0); EOSINOPHILS # (AUTO) 0.3 K/uL (0.0-0.7); EOSINOPHILS % (AUTO) 3.9 % (0.0-7.0); HEMATOCRIT 38.2 % (36.7-47.1); HEMOGLOBIN 12.3 g/dL (12.5-16.3); LYMPHOCYTES % (AUTO) 28.7 % (20.5-51.5); MEAN CORPUSCULAR HGB CONC 32 g/dL (32.5-36.3); MEAN CORPUSCULAR VOLUME 89.8 fL (73.0-96.2); MONOCYTES # (AUTO) 0.7 K/uL (0.1-1.30); MONOCYTES % (AUTO) 10.3 % (0.0-11.0); NEUTROPHILS # (AUTO) 3.9 K/uL (1.8-8.9); NEUTROPHILS % (AUTO) 56.2 % (38.5-71.5); PLATELET COUNT (AUTO) 337 K/uL (152-348); RED BLOOD CELL COUNT(AUTO) 4.26 MIL/uL (4.06-5.63); RED CELL DISTRIBUTION WIDTH 13.3 % (12.1-16.2)
[2024-05-24 13:40] LABS: CALCIUM 9.2 mg/dL (8.5-10.1); CREATININE 0.9 mg/dL (0.6-1.3); POTASSIUM 4.7 mmol/L (3.5-5.1)
[2024-05-24 13:42] LABS: DIFFERENTIAL COMMENT 1
[2024-05-24 13:46] LABS: ALBUMIN 3.6 g/dL (3.4-5.0); BILIRUBIN,TOTAL 0.2 mg/dL (0.2-1.0); TOTAL PROTEIN, SERUM 7.3 g/dL (6.4-8.2)
[2024-05-24 14:05] VITALS: BP 131/66; O2SAT 97
== END 2024-05-24 14:06 | disposition home or self-care (01) ==
LOC: ER 10:45
DX: R21 Rash and other nonspecific skin eruption (principal); E11.9 Type 2 diabetes mellitus without complications; F12.90 Cannabis use, unspecified, uncomplicated; F17.210 Nicotine dependence, cigarettes, uncomplicated; J45.909 Unspecified asthma, uncomplicated; K21.9 Gastro-esophageal reflux disease without esophagitis; F31.9 Bipolar disorder, unspecified; Z79.82 Long term (current) use of aspirin; Z79.899 Other long term (current) drug therapy; Z90.89 Acquired absence of other organs; Z88.8 Allergy status to other drugs, medicaments and biological substances; Z60.2 Problems related to living alone
CPT/HCPCS: 36415; 85025; A4606; A4663

== ENCOUNTER 2024-06-05 21:30 | Emergency (ER) | payer OTHER ==
[~2024-06-05] VITALS: Ht 177.8 cm; Wt 68.0 kg
[2024-06-06] MEDS ORDERED: OLANZAPINE 5 MG TABLET ONE (00:32)
[2024-06-06] MEDS: OLANZAPINE 5 MG TABLET PO ONE (00:35)
[2024-06-06 00:47] VITALS: BP 130/78; O2SAT 98
== END 2024-06-06 00:48 | disposition home or self-care (01) ==
LOC: ER 21:30
DX: F22 Delusional disorders (principal); E11.9 Type 2 diabetes mellitus without complications; F12.90 Cannabis use, unspecified, uncomplicated; F17.210 Nicotine dependence, cigarettes, uncomplicated; J45.909 Unspecified asthma, uncomplicated; K21.9 Gastro-esophageal reflux disease without esophagitis; Z79.82 Long term (current) use of aspirin; Z79.899 Other long term (current) drug therapy; Z90.89 Acquired absence of other organs; Z60.2 Problems related to living alone
CPT/HCPCS: A4606; A4663